=== PATIENT | male | born 1990 | race Caucasian/White ===

== ENCOUNTER 2024-12-13 08:05 | Emergency (ER) | payer BC ==
[~2024-12-13] VITALS: Ht 185.4 cm; Wt 83.0 kg
--- NOTE | 2024-12-13 08:25 | Physician Documentation ---
History of Present Illness ~ Chief Complaint: Laceration Stated Complaint: FINGER LAC Time Seen by MD: 08:18 HPI 34-year-old male presenting with a laceration on his right index finger that occurred last night. He states that he was cutting some food up and the knife accidentally slipped and he cut his finger. He states that it started bleeding and rinsed it out and cleaned it and placed a Band-Aid. He is here today to see if he needs any type of stitches for the laceration. He states that it hurts when he bends and extends his finger but he has full range of motion. He is unsure if his tetanus is up-to-date. No other complaints. Medication Reconciliation Allergies: Coded Allergies: Sulfa (Sulfonamide Antibiotics) (Verified Allergy, Unknown, BREAK OUT IN RASH, 12/13/24) Review of Systems All Other Systems at this time: Reviewed and Negative Physical Exam Vital Signs: Temperature: 98.0, Heart Rate: 58, Respiratory Rate: 17, BP: 131/70, Pulse Oximetry: 99, Weight: 83.000 Oxygen Flow Rate: 0 Physical Exam I have reviewed the triage vitals. CONST: Well developed and well nourished. In no acute distress HENT: Head Atraumatic EYES: Pupils are equal, round and reactive to light. Normal conjunctiva NECK: Normal range of motion. Supple. CARDIO: Normal rate and regular rhythm. No murmurs, rubs, or gallops. S1, S2. PULM/CHEST: No respiratory distress. Lungs clear to auscultation. No wheeze ABD: Soft and nontender. Nondistended. Bowel sounds normal. No guarding. : Exam deferred MSK: No edema. No deformity. Right hand index finger dorsal aspect with a 1 cm superficial laceration over the middle phalanx. There is full flexion and extension of the digit but with some pain over the laceration. NEURO: Alert and oriented to person, place and time. Moving all extremities SKIN: Warm and dry. PSYCH: Normal mood and affect. Good eye contact. Procedures Laceration/Wound Repair Laceration : Length (cm): 1 Anesthesia: none Prep: irrigated by nurse Foreign Body: not identified Wound Repaired With: Dermabond Tolerated Procedure Well?: yes, no complications Progress Results/Orders Results/Orders Orders - CATY MCGHEE MD Dermabond To Bedside (12/13/24 ) Completed Orders - CATY MCGHEE MD Tetanus/Pertuss/Diph Acell/Pf (Boostrix (12/13/24 08:20) Medications Received in ER Medications (Trade) Dose Ordered Sig/Andrew Route PRN Reason Start Time Stop Time Status Last Admin Dose Admin (Boostrix vaccine syringe) 0.5 ml ONCE ONCE IMVAC 12/13/24 08:20 12/13/24 08:21 DC 12/13/24 08:34 0.5 ML Vital Signs 12/13/24 12/13/24 08:07 08:41 Temp 98.0 98.0 Pulse 58 58 Resp 17 15 B/P (MAP) 131/70 128/72 (90) Pulse Ox 99 99 O2 Flow Rate 0 0 Medical Decision Making Additional Comments 34-year-old male presenting with a right index finger laceration. The laceration is superficial and only needs repair with Dermabond-please see procedure note. Patient's tetanus was updated as well. Advised the patient to monitor the wound for healing. Should any redness or drainage occur return to the ED. Otherwise monitor for improvement and resolution and follow up with PCP as needed. Departure Disposition: 01 HOME / SELF CARE / HOMELESS Impression: Primary Impression: Finger laceration Condition: Improved Discharge Instructions: Laceration Care (Skin Glue) Additional Instructions: Monitor for improvement and resolution. Dermabond will eventually wear off itself. Ensure that the wound does not reopen. If any redness, bleeding or drainage occurs please return immediately to the emergency department. Follow up with primary care physician as needed. Referrals: NO PRIMARY CARE PROVIDER (PCP) Signature Scribe Signature: 1 Attestation: 1 CATY MCGHEE MD December 13, 2024 08:25
[2024-12-13] MEDS: TETanus/Pertussis (Acell)/Diphther VAC/PF (Tdap-Adult) 0.5ml syringe IMVAC ONE (08:34)
[2024-12-13 09:12] VITALS: BP 128/72; PULSE 58; RESP 15; TEMP 98; O2SAT 99
== END 2024-12-13 09:15 | disposition home or self-care (01) ==
LOC: ER 08:06
DX: S61.210A Laceration without foreign body of right index finger without damage to nail, initial encounter (principal); Z88.2 Allergy status to sulfonamides; W26.0XXA Contact with knife, initial encounter; Y93.89 Activity, other specified; Y92.89 Other specified places as the place of occurrence of the external cause; Y99.8 Other external cause status
CPT/HCPCS: 12001; 90471; 90715; 99283